=== PATIENT | female | born 1995 | race Caucasian/White ===

== ENCOUNTER 2022-06-20 16:24 | Outpatient (CLI) | payer MEDICARE, SELFPAY ==
[2022-06-20 16:43] LABS: Basophils Absolute Auto 0.1 K/mm3 (0.0-0.1); Basophils Percent Auto 0.4 % (0.2-1.2); Eosinophils Absolute Auto 0.1 K/mm3 (0-0.3); Eosinophils Percent Auto 0.6 % (0-4.4); Hematocrit 40.3 % (37.0-47.0); Hemoglobin 13.1 g/dL (12.0-15.0); Immature Granulocyte Absolute 0.04 K/mm3 (0.00-0.031); Immature Granulocyte Percent A 0.3 % (0-0.5); Lymphocytes Absolute Auto 3.01 K/mm3 (0.9-3.2); Lymphocytes Percent Auto 25.1 % (18.3-44.2); Mean Corpuscular HGB Conc 32.5 g/dl (32-36); Mean Corpuscular Hemoglobin 28.5 pg (26-34); Mean Corpuscular Volume 87.8 fl (80-100); Mean Platelet Volume 9.8 fl (7.4-10.4); Monocytes Absolute Auto 0.6 K/mm3 (0.1-0.6); Monocytes Percent Auto 5.3 % (2.6-8.5); Neutrophils Absolute Auto 8.2 K/mm3 (1.3-6.7); Neutrophils Percent Auto 68.3 % (45.5-73.1); Platelet Count Result 403 k/mm3 (150-375); Red Blood Count 4.59 M/mm3 (4.2-5.4); Red Cell Distribution Width 14.4 % (11.5-14.5)
[2022-06-20 16:54] LABS: Alanine Aminotransferase 13 U/L (6-35); Albumin Level 4.6 g/dL (3.5-5.1); Alkaline Phosphatase 74 U/L (38-126); Anion Gap 13 mmol/L (8-16); Aspartate Amino Transferase 18 U/L (14-36); Bilirubin,Total 0.6 mg/dL (0.2-1.3); Blood Urea Nitrogen 6 mg/dL (7-17); Calcium 9.4 mg/dL (8.4-10.2); Carbon Dioxide 22 mmol/L (22-30); Chloride 101 mmol/L (98-107); Estimated Glomerular Filt Rate > 60; Glucose 110 mg/dL (65-110); Potassium 3.8 mmol/L (3.4-5.0); Sodium 136 mmol/L (137-145)
[2022-06-20 18:05] LABS: Free T4 Free Thyroxine 1.26 ng/mL (0.78-2.19)
== END 2022-06-20 16:25 | disposition home or self-care (01) ==
LOC: ANHLAB 16:28
PROVIDERS: PCP Internal Medicine; Visit Provider Internal Medicine
DX: I49.1 Atrial premature depolarization (principal); Z79.899 Other long term (current) drug therapy; Z13.29 Encounter for screening for other suspected endocrine disorder; R03.0 Elevated blood-pressure reading, without diagnosis of hypertension
CPT/HCPCS: 36415; 80053; 83735; 84439; 84443; 85025

== ENCOUNTER 2022-06-30 12:40 | Outpatient (CLI) | payer MEDICARE, MEDICAID, SELFPAY ==
--- NOTE | 2022-07-04 16:48 | P.PCNHOL_ITS ---
Holter/Event Monitor Holter/Event Monitor Date of procedure: 06/30/22 Holter/Event Procedure: 48 Hr Holter Monitor Indications: PAC Conclusion: 1. 48 hour holter monitor on 06/30/22. 2. Underlying rhythm is sinus rhythm. HR range 45-128 bpm; average HR 85 bpm. 3. There are 15,778 premature supraventricular complexes, 4 supraventricular couplets, 9 supraventricular bigeminy, 12,343 supraventricular trigeminy. No sup raventricular tachycardia. 4. No premature ventricular complexes. No ventricular tachycardia. 5. No sinoatrial or atrioventricular blocks. No significant pauses greater than 2 seconds. 6. Patient reports symptoms of pounding heart and abdominal pain which demonstrate 86-95 bpm and a PAC.
== END 2022-06-30 12:41 | disposition home or self-care (01) ==
LOC: ANHCARD 12:41
PROVIDERS: PCP Internal Medicine; Visit Provider Internal Medicine
DX: I49.1 Atrial premature depolarization (principal); R03.0 Elevated blood-pressure reading, without diagnosis of hypertension; R06.02 Shortness of breath
CPT/HCPCS: 93225; 93226

== ENCOUNTER 2024-04-28 22:59 | Emergency (ER) | payer OTHER, SELFPAY ==
[2024-04-28 23:01] VITALS: BP 178/111; PULSE 81; RESP 16; TEMP 37; O2SAT 100
--- NOTE | 2024-04-29 00:35 | ED.GENADULT ---
HPI - General Adult General Chief complaint: Wound/Laceration Stated complaint: cut to tip of right ring finger Time Seen by Provider: 04/29/24 00:27 Source: patient Mode of arrival: ambulatory Limitations: no limitations History of Present Illness HPI narrative: This is a 28-year-old female who presents to the ED with chief complaint of avulsion to her right index finger. patient states that she was slicing food with a mandolin slicer and accidentally cut the tip of the right finger. Reports a lot of trouble controlling the bleeding at home. Denies any further sites of pain or injury. Related Data Home Medications Medication Instructions Recorded Confirmed methotrexate sodium 2.5 mg tablet 20 mg PO WEEKLY 06/20/22 03/20/24 escitalopram oxalate 10 mg tablet 10 mg PO DAILY 01/23/23 03/20/24 hydroxyzine HCl 25 mg tablet 25 mg PO BID PRN 01/23/23 03/20/24 methylprednisolone 8 mg tablet 8 mg PO DAILY 08/09/23 03/20/24 upadacitinib 30 mg tablet,extended 30 mg PO DAILY 03/20/24 03/20/24 release 24 hr (Rinvoq) Allergies Allergy/AdvReac Type Severity Reaction Status Date / Time No Known Allergies Allergy Verified 04/01/24 14:12 Review of Systems Review of Systems: All systems as dictated in [facility] Past Medical History Medical History (Updated 04/29/24 @ 00:38 by Blake Martins PA-C) Abdominal pain in female Benign essential hypertension BMI 26.0-26.9,adult BMI 27.0-27.9,adult BMI 28.0-28.9,adult BMI 29.0-29.9,adult Bronchitis Cough with hemoptysis Discomfort of left ear Elevated blood pressure reading without diagnosis of hypertension Encounter for routine adult health examination without abnormal findings Follow up Frozen shoulder Hives Left wrist pain Mood swings On prison drug therapy PAC (premature atrial contraction) Pneumonia Sinusitis SOB (shortness of breath) Tenosynovitis Trigger finger of right hand Viral pharyngitis Family History Family History Other Diabetes mellitus Family history of cardiovascular disease Social History Social History (Updated 04/01/24 @ 14:13 by Danisha Stout MA) Smoking status: Current every day smoker Tobacco type: e-cigarettes/vaping Alcohol intake: never Lack of Transportation: No Lack of Food: Never True Current Housing: I Have Housing Concerned About Future Housing: No Difficulty Paying Gas/Electric Bills: No Difficulty Paying for Meds: No Currently Unemployed: No Education: Bachelor's Degree Difficulty w/ Childcare or Family Care: No Exam Narrative: GENERAL: Well-appearing, well-nourished, and in no acute distress. HEAD: Normocephalic, atraumatic. MSK: Normal range of motion. No edema. SKIN: 1.5 cm full avulsion injury to the distal right index finger. oozing blood but nearly controlled. Minimal nail damage NEURO: Alert and oriented x4. No focal deficits. PSYCH: Normal mood and affect. Course Vital Signs Vital signs: Vital Signs Temperature 98.6 F 04/28/24 23:01 Pulse Rate 81 04/28/24 23:01 Respiratory Rate 16 04/28/24 23:01 Blood Pressure 178/111 H 04/28/24 23:01 Pulse Oximetry 100 04/28/24 23:01 Oxygen Delivery Room Air 04/28/24 23:01 Temperature 98.6 F 04/28/24 23:01 Pulse Rate 81 04/28/24 23:01 Respiratory Rate 16 04/28/24 23:01 Blood Pressure 178/111 H 04/28/24 23:01 Pulse Oximetry 100 04/28/24 23:01 Oxygen Delivery Room Air 04/28/24 23:01 Medical Decision Making MDM Narrative Medical decision making narrative: This is a 28-year-old female who presents to the ED with chief complaint of avulsion to the index finger. Vitals Show elevated blood pressure, consistent with pain. Exam today shows a complete avulsion of the tip of the index finger the right side. There is very minimal at distal nail damage. The bleeding has been controlled here in the ED. Nonstick dressing
== END 2024-04-29 01:10 | disposition home or self-care (01) ==
LOC: ANHED 04-29 00:40
PROVIDERS: Emergency Provider Physician Assistant; PCP Internal Medicine
DX: S61.200A Unspecified open wound of right index finger without damage to nail, initial encounter (principal); I10 Essential (primary) hypertension; Z87.01 Personal history of pneumonia (recurrent); F17.290 Nicotine dependence, other tobacco product, uncomplicated; Z79.899 Other long term (current) drug therapy; W27.4XXA Contact with kitchen utensil, initial encounter; Y93.G1 Activity, food preparation and clean up
CPT/HCPCS: 99282